=== PATIENT | female | born 1980 | race Caucasian/White ===

== ENCOUNTER 2025-04-24 10:20 | Emergency (ER) | payer OTHER ==
[~2025-04-24] VITALS: Ht 165.1 cm; Wt 62.0 kg
[2025-04-24 11:18] VITALS: TEMP 98.6
[2025-04-24 12:35] LABS: PLATELET COUNT (AUTO) 244 K/uL (150-450); RED BLOOD CELL COUNT(AUTO) 5.05 MIL/uL (4.00-5.20); RED CELL DISTRIBUTION WIDTH 16.3 % (11.5-14.5); WHITE BLOOD COUNT (AUTO) 5.9 K/uL (4.5-11.0)
[2025-04-24 12:36] LABS: CREATININE 0.70 mg/dL (0.60-1.30); GLUCOSE,RANDOM 113 mg/dL (70-110); SODIUM SERUM 137 mmol/L (136-145); UREA NITROGEN, BLOOD 11 mg/dL (7-18)
[2025-04-24 12:37] LABS: CALCIUM, TOTAL 8.3 mg/dL (8.8-10.5); GLOMERULAR FILTR. RATE CALC > 60 mL/min (>60)
[2025-04-24 12:46] LABS: TROPONIN I-HIGH SENSITIVITY 4 ng/L (<51)
[2025-04-24 14:31] VITALS: BP 152/93; PULSE 96; RESP 18; O2SAT 98
== END 2025-04-24 14:39 ==
LOC: EMS 10:20
DX: F41.9 Anxiety disorder, unspecified (principal); D64.9 Anemia, unspecified; R07.89 Other chest pain; R06.02 Shortness of breath; R03.0 Elevated blood-pressure reading, without diagnosis of hypertension; Z65.3 Problems related to other legal circumstances; Z02.89 Encounter for other administrative examinations
CPT/HCPCS: 71045; 80048; 83735; 83880; 84484; 84703; 85025; 93005; 93306; 99285; 36415-L1; 36415-TC